=== PATIENT | female | born 1955 | race Caucasian/White ===

== ENCOUNTER 2017-11-01 13:16 | Emergency (ER) | payer OTHER ==
[~2017-11-01] VITALS: Ht 149.9 cm; Wt 61.3 kg
[~2017-11-01 13:16] MED LIST: CITA10TA4 PO; CYAN10005 PO; MULT-513 PO; OMEP40CA36 PO
[2017-11-01 13:32] VITALS: TEMP 37.3; Ht 149.9 cm; Wt 61.3 kg
[2017-11-01] MEDS ORDERED: SODIUM CHLORIDE 0.9% 500ML 500 ML IV STA ×2 (13:41→15:51)
[2017-11-01] MEDS ORDERED: ONDANSETRON INJ 2 MG/ML 2 ML VIAL IV PRN (13:45)
[2017-11-01] MEDS ORDERED: OPTIRAY 320 IV PRN (13:45)
--- NOTE | 2017-11-01 13:53 | EMERGENCY ROOM VISIT NOTE ---
History First contact with patient: 13:35 Chief Complaint: ABDOMINAL PAIN Stated Complaint: LOWER LEFT ABDOMINAL PAIN & BACK PAIN Nursing Triage Summary: Pt referred by Acute Care. c/o LLQ pain into left flank. denies n/v/d. denies urinary symptoms History of Present Illness The patient is a 62 year old female who presents to the Emergency Room with complaints of left lower quadrant abdominal pain for 2 days. She describes it as a constant, dull ache that is worse with movement. She tried ibuprofen with minimal relief. She denies any fever or chills. No nausea or vomiting. The patient had 3 regular bowel movements earlier today without blood. She was first seen at urgent care, and referred to the ED for further evaluation. She denies any urinary symptoms. The pain does radiate into her back. No history of diverticulitis. The patient had a total hysterectomy years ago Review of Systems 10 system review performed and negative unless noted in HPI or below Past Medical/Surgical History GERD Status post total hysterectomy Social History Smoking Status: Never Smoker Housing Status: lives with family Current/Historical Medications Scheduled Amoxicillin & Pot Clavulanate (Augmentin 875-125 mg), 1 TAB PO BID Omeprazole (Prilosec), 40 MG PO DAILY Scheduled PRN Hydrocodone/Acetaminophen 5MG/325MG (Russell 5MG/325MG), 1 TABLET PO Q4H PRN for Pain Physical Exam Vital Signs Date Time Temp Pulse Resp B/P (MAP) Pulse Ox O2 Delivery O2 Flow Rate FiO2 11/01/17 19:40 71 116/74 96 11/01/17 17:30 85 18 106/64 100 Room Air 11/01/17 15:30 79 22 120/60 96 Room Air 11/01/17 13:32 37.3 83 18 124/83 97 Room Air Physical Exam VITALS: Vitals are noted on the nurse's note and reviewed by myself. Vital signs stable. GENERAL: 62-year-old female, in no acute distress, nondiaphoretic, well- developed well-nourished. SKIN: The skin was without rashes, erythema, edema, or bruising.. HEAD: Normocephalic atraumatic. EYES: Conjunctivae without injection, sclerae without icterus. Extraocular movements intact. MOUTH: Mucous membranes fairly moist NECK: Supple without nuchal rigidity. No lymphadenopathy. Cervical spine is nontender. No JVD. HEART: Regular rate and rhythm without murmurs gallops or rubs. LUNGS: Clear to auscultation bilaterally without wheezes, rales or rhonchi. No accessory muscle use. ABDOMEN: Positive bowel sounds x 4.Soft, tenderness to palpation in the left lower quadrant without organomegaly. No guarding or rebound tenderness. MUSCULOSKELETAL: No muscle atrophy, erythema, or edema noted. No tenderness to palpation. Normal gait. Strength 5/5 throughout. NEURO: Patient was alert and oriented to person place and time. Normal sensation to touch. No focal neurological deficits. Medical Decision & Procedures ER Provider Diagnostic Interpretation: CT of the abdomen and pelvis with IV contrast and oral contrast IMPRESSION: 1. Findings compatible with mild acute uncomplicated diverticulitis of the distal descending colon . No evidence of perforation or drainable fluid collection. 2. No bowel obstruction. 3. Normal appendix. 4. Prior hysterectomy. Electronically signed by: Dm Jacobsen M.D. 11/01/2017 5:09 PM Dictated Date/Time: 11/01/2017 5:01 PM The status of this report is Signed. Draft = Not yet reviewed or approved by Radiologist. Signed = Reviewed and approved by Radiologist. <AttendingPhy></AttendingPhy> <FamilyPhy>Guillermina Hanna DO</FamilyPhy> < PrimaryPhy>Guillermina Hanna DO</PrimaryPhy> <UnitNumber>[id number]</UnitNumber > <VisitNumber>[id number]</VisitNumber> <PatientName>NAN ESTRADA</ PatientName> <DateOfBirth>1955</DateOfBirth> <Location>[facility]</Location> < ServiceDate>11/01/17</ServiceDate> <MNE>ESINDI</MNE> <OrderingPhy>Yasemin Jarrett PA-C</OrderingPhy> <OrderingPhyMNE>f rep ord dr moore</OrderingPhyMNE> < DictatingPhyMNE>f rep dict dr moore</DictatingPhyMNE> <CCListMNE>f rep ct mne</ CCListMNE> <AdmittingPhyMNE>f pt admit dr moore</AdmittingPhyMNE> <AttendingPhyMNE >f pt attend dr moore</AttendingPhyMNE> <ConsultingPhyMNE>f pt consult dr moore</ConsultingPhyMNE> <FamilyPhyMNE>f pt fam dr moore</FamilyPhyMNE> <OtherPhyMNE>f pt other dr moore</OtherPhyMNE> < PrimaryPhyMNE>f pt prim care dr moore</PrimaryPhyMNE> <ReferringPhyMNE>f pt referring dr moore</ReferringPhyMNE> Laboratory Results 11/01/17 13:57 Red Blood Count 4.74, Mean Corpuscular Volume 91.6, Mean Corpuscular Hemoglobin 30.4, Mean Corpuscular Hemoglobin Concent 33.2, Mean Platelet Volume 10.5, Neutrophils (%) (Auto) 75.3, Lymphocytes (%) (Auto) 14.2, Monocytes (%) (Auto) 8.9, Eosinophils (%) (Auto) 0.9, Basophils (%) (Auto) 0.3, Neutrophils # (Auto) 10.48, Lymphocytes # (Auto) 1.98, Monocytes # (Auto) 1.24, Eosinophils # (Auto) 0.12, Basophils # (Auto) 0.04 11/01/17 13:57 Test 11/01/17 13:44 11/01/17 13:57 Urine Color YELLOW Urine Appearance CLEAR (CLEAR) Urine pH 5.0 (4.5-7.5) Urine Specific Foster 1.019 (1.000-1.030) Urine Protein NEG (NEG) Urine Glucose (UA) NEG (NEG) Urine Ketones TRACE (NEG) Urine Occult Blood NEG (NEG) Urine Nitrite NEG (NEG) Urine Bilirubin NEG (NEG) Urine Urobilinogen NEG (NEG) Urine Leukocyte Esterase NEG (NEG) White Blood Count 13.91 K/uL (4.8-10.8) Red Blood Count 4.74 M/uL (4.2-5.4) Hemoglobin 14.4 g/dL (12.0-16.0) Hematocrit 43.4 % (37-47) Mean Corpuscular Volume 91.6 fL (80-100) Mean Corpuscular Hemoglobin 30.4 pg (25-34) Mean Corpuscular Hemoglobin Concent 33.2 g/dl (32-36) Platelet Count 262 K/uL (130-400) Mean Platelet Volume 10.5 fL (7.4-10.4) Neutrophils (%) (Auto) 75.3 % Lymphocytes (%) (Auto) 14.2 % Monocytes (%) (Auto) 8.9 % Eosinophils (%) (Auto) 0.9 % Basophils (%) (Auto) 0.3 % Neutrophils # (Auto) 10.48 K/uL (1.4-6.5) Lymphocytes # (Auto) 1.98 K/uL (1.2-3.4) Monocytes # (Auto) 1.24 K/uL (0.11-0.59) Eosinophils # (Auto) 0.12 K/uL (0-0.5) Basophils # (Auto) 0.04 K/uL (0-0.2) RDW Standard Deviation 44.0 fL (36.4-46.3) RDW Coefficient of Variation 13.1 % (11.5-14.5) Immature Granulocyte % (Auto) 0.4 % Immature Granulocyte # (Auto) 0.05 K/uL (0.00-0.02) Anion Gap 8.0 mmol/L (3-11) Est Creatinine Clear Calc Drug Dose 59.6 ml/min Estimated GFR () 94.4 Estimated GFR (Non- 81.5 BUN/Creatinine Ratio 27.8 (10-20) Lactic Acid Level 0.6 mmol/L (0.4-2.0) Calcium Level 9.0 mg/dl (8.5-10.1) Total Bilirubin 0.4 mg/dl (0.2-1) Aspartate Amino Transf (AST/SGOT) 71 U/L (15-37) Alanine Aminotransferase (ALT/SGPT) 112 U/L (12-78) Alkaline Phosphatase 143 U/L (45-117) Total Protein 8.2 gm/dl (6.4-8.2) Albumin 4.1 gm/dl (3.4-5.0) Globulin 4.1 gm/dl (2.5-4.0) Albumin/Globulin Ratio 1.0 (0.9-2) Medications Administered Medications (Trade) Dose Ordered Sig/Monique Route Start Time Stop Time Status Last Admin Dose Admin Sodium Chloride 500 ml @ 999 mls/hr Q31M STAT IV 11/01/17 13:41 11/01/17 14:11 DC 11/01/17 14:07 999 MLS/HR Morphine Sulfate (MoRPHine SULFATE INJ) 4 mg Q1H PRN IV 11/01/17 13:45 11/01/17 20:28 DC 11/01/17 15:36 4 MG Ondansetron HCl (Zofran Inj) 4 mg Q2H PRN IV 11/01/17 13:45 11/01/17 20:28 DC 11/01/17 14:06 4 MG Sodium Chloride 500 ml @ 999 mls/hr Q31M STAT IV 11/01/17 15:51 11/01/17 16:21 DC 11/01/17 16:05 999 MLS/HR Ampicillin Sodium/ Sulbactam Sodium 3000 mg/Sodium Chloride 108 ml @ 200 mls/hr NOW STAT IV 11/01/17 18:20 11/01/17 18:52 DC 11/01/17 18:48 200 MLS/HR ED Course Patient was seen and examined Vital signs including blood pressure were reviewed medications list was verified with patient Labs were obtained, and a saline lock was established The patient was hydrated with 500 cc normal saline, she was ordered morphine and Zofran as needed as noted above Imaging was performed and reviewed Upon reassessment, the patient was more comfortable. We discussed her workup. She voiced understanding. The patient was medicated with Unasyn 3 g IV. She was given an additional normal saline bolus 500 cc The case was discussed with my supervising physician who is in agreement with my plan I reviewed discharge instructions the patient. They voiced understanding and had no further questions. Medical Decision Differential diagnosis: Diverticulitis, ureteral stone, pyelonephritis, UTI, viral GI illness, mass among others were entertained This patient is a 62-year-old female that presents to the emergency department with a few days of left lower quadrant abdominal pain. On exam, she was tender in the area. The patient was nontoxic in appearance. She was afebrile. Her labs reveal mild leukocytosis. A CT scan of the abdomen and pelvis was performed and confirms acute, uncomplicated diverticulitis. No signs of perforation or abscess. This is the patient's first bout of diverticulitis. As she is tolerating p.o. and her pain is well controlled, I believe she is stable to be discharged home on outpatient therapy. She was comfortable with this plan. She was sent home with a 10 day course of Augmentin. I encouraged her to follow-up closely with her PCP. She was cautioned on signs for which to return to the ED. This chart was completed in part utilizing [employer] Voice Recognition software. Attempts were made to minimize the grammatical errors, random word insertions, pronoun errors and incomplete sentences. Any formal questions or concerns about the content, text or information contained within the body of this dictation should be directly addressed to the provider for clarification. Medication Reconcilliation Current Medication List: was personally reviewed by me Blood Pressure Screening Patient's blood pressure: Normal blood pressure Impression Primary Impression: Diverticulitis Departure Information Dispostion Home / Self-Care Condition FAIR Prescriptions Hydrocodone/Acetaminophen 5MG/325MG (Russell 5MG/325MG) Tab 1 TABLET PO Q4H Y for Pain, #18 TAB For Initial Treatment Prov: Yasemin Jarrett PA-C 11/01/17 Amoxicillin & Pot Clavulanate (Augmentin 875-125 mg) 1 Tab Tab 1 TAB PO BID for 10 Days, #20 TAB Prov: Yasemin Jarrett PA-C 11/01/17 Referrals No Doctor, Assigned (PCP) Patient Instructions My [facility] Additional Instructions You were evaluated in the emergency department for abdominal pain. You have diverticulitis, which is causing your pain. Please avoid seeds, fruits and nuts. Please try to stay well-hydrated. Increase your fluids over the next several days. Please take the ENTIRE course of Augmentin as prescribed Russell 1-2 tabs every 4 hours for severe pain. Do not drink alcohol or drive while taking this medication. This may be taken with ibuprofen, but avoid Tylenol. Please follow-up with your primary care physician early next week for a recheck. Call tomorrow morning for a follow-up appointment. Do not hesitate to return to the emergency department with any new, worsening or concerning symptoms; especially, worsening pain, fever, persistent vomiting or blood in your stool It was a pleasure participating in your care today Work Instructions Return To Work: 3 days
[2017-11-01] MEDS: MoRPHine SULFATE 4 MG/ML 1 ML CARP\\VIAL IV PRN ×2 (14:06→15:36)
[2017-11-01 14:15] LABS: BASO % 0.3 %; BASO ABS # 0.04 K/uL (0-0.2); EOS % 0.9 %; EOS ABS # 0.12 K/uL (0-0.5); HEMATOCRIT 43.4 % (37-47); HEMOGLOBIN 14.4 g/dL (12.0-16.0); IG# 0.05 K/uL (0.00-0.02); LYMPH % 14.2 %; LYMPH ABS # 1.98 K/uL (1.2-3.4); MEAN CELL VOLUME 91.6 fL (80-100); MEAN CORPUSCULAR HEMOGLOBIN 30.4 pg (25-34); MEAN CORPUSCULAR HGB CONC 33.2 g/dl (32-36); MEAN PLATELET VOLUME 10.5 fL (7.4-10.4); MONO % 8.9 %; MONO ABS # 1.24 K/uL (0.11-0.59); NEUT % 75.3 %; NEUT ABS # 10.48 K/uL (1.4-6.5); PLATELET COUNT 262 K/uL (130-400); RED CELL DISTRIBUTION WIDTH CV 13.1 % (11.5-14.5); WHITE BLOOD COUNT 13.91 K/uL (4.8-10.8)
[2017-11-01 14:49] LABS: ALBUMIN 4.1 gm/dl (3.4-5.0); CREATININE 0.78 mg/dl (0.60-1.20); POTASSIUM 3.5 mmol/L (3.5-5.1); TOTAL PROTEIN 8.2 gm/dl (6.4-8.2)
[2017-11-01] MEDS ORDERED: OMEP40CA41 PO (15:12)
--- NOTE | 2017-11-01 17:52 | DIAGNOSTIC IMAGING REPORT ---
ABDOMEN AND PELVIS CT WITH IV AND ORAL CONTRAST CT DOSE: 323.89 mGy.cm HISTORY: Acute left lower quadrant abdominal pain LLQ pain ? diverticulitis TECHNIQUE: Multiaxial CT images of the abdomen and pelvis were performed following the use of intravenous and oral contrast. A dose lowering technique was utilized adhering to the principles of ALARA. COMPARISON STUDY: Right upper quadrant abdominal ultrasound 01/21/2013. FINDINGS: Subsegmental bibasilar groundglass densities suggest atelectasis. No pneumatosis or pneumoperitoneum. Imaged inferior cardiac chambers are unremarkable. Gallbladder, liver, spleen, pancreas and adrenal glands are unremarkable. Patent portal vein. Kidneys, ureters and bladder are unremarkable. Prior hysterectomy. No adnexal mass lesions. Multiple phleboliths of the pelvis. Mild mixed plaquing of the aorta. IVC is unremarkable. No pathologically enlarged lymph nodes. Mild nonspecific wall thickening of the distal esophagus. Moderate to large duodenal diverticulum. No bowel obstruction. Colonic diverticulosis with focal mild to moderate circumferential wall thickening about the distal descending colon with pericolonic inflammation is compatible with acute diverticulitis. Mild thickening of the adjacent peritoneum. No evidence of perforation or drainable fluid collection. Terminal ileum and appendix appear normal. Soft tissues are within normal limits. Breast parenchyma appears unremarkable. Multilevel facet arthropathy. Grade 1 anterolisthesis L4 on L5, likely secondary to chronic facet disease. IMPRESSION: 1. Findings compatible with mild acute uncomplicated diverticulitis of the distal descending colon . No evidence of perforation or drainable fluid collection. 2. No bowel obstruction. 3. Normal appendix. 4. Prior hysterectomy. Electronically signed by: Dm Jacobsen M.D. 11/01/2017 5:09 PM Dictated Date/Time: 11/01/2017 5:01 PM
[2017-11-01] MEDS ORDERED: AMPICILLIN/SULBACTAM SOD INJ 3,000 MG in SODIUM CHLORIDE 0.9% 100ML 100 ML IV STA (18:20)
[2017-11-01] MEDS ORDERED: AMOX875T PO (19:08)
[2017-11-01] MEDS ORDERED: HYDR-5688 PO (19:08)
[2017-11-01 19:40] VITALS: BP 116/74; PULSE 71; O2SAT 96
== END 2017-11-01 19:42 | disposition home or self-care (01) ==
LOC: C.EDB 13:17 → C.EDC 19:42
DX: K57.92 Diverticulitis of intestine, part unspecified, without perforation or abscess without bleeding (principal); D72.829 Elevated white blood cell count, unspecified; M54.9 Dorsalgia, unspecified; K21.9 Gastro-esophageal reflux disease without esophagitis; Z79.899 Other long term (current) drug therapy